=== PATIENT | female | born 1930 | race Caucasian/White ===

== ENCOUNTER 2016-09-09 13:14 | Emergency (ER) | payer MEDICARE, OTHER ==
[~2016-09-09 13:14] MED LIST: ACETAMINOPHEN325 MG PO; ATARAX25 MG PO; BETIMOL5 ML OU; CERTAGEN1 EACH PO; COLACE100 MG PO; DULCOLAX5 MG PO; FISH OIL DR 1,1 EAC1 PO; LANOXIN125 MCG PO; LAXATIVE SUPPOS10 MG PR; LIPITOR40 MG PO; LORTAB 7.5-3251 EACH PO; MICRO-K10 MEQ PO; MILK OF MA400 MG/5 M PO; OXY-IR 5MG5 MG PO; PRILOSEC20 MG PO; SENOKOT-S TABL1 EACH PO; TRIAMTERENE-HC1 EAC1 PO; ULTRAM50 MG PO; VITAMIN C500 M1 PO; XALATAN2.5 ML OU; XARELTO10 MG PO; XOPENEX (11.25 MG/3 INH; ZESTRIL5 MG PO; ZOFRAN4 MG PO
== END 2016-09-09 14:21 | disposition home or self-care (01) ==
LOC: FER 13:14
DX: S61.451A Open bite of right hand, initial encounter (principal); T54.91XA Toxic effect of unspecified corrosive substance, accidental (unintentional), initial encounter; T23.601A Corrosion of second degree of right hand, unspecified site, initial encounter; T32.0 Corrosions involving less than 10% of body surface; Z23 Encounter for immunization; W55.01XA Bitten by cat, initial encounter; Y92.009 Unspecified place in unspecified non-institutional (private) residence as the place of occurrence of the external cause
CPT/HCPCS: 90471; 90715